=== PATIENT | female | born 1970 | race Caucasian/White ===

== ENCOUNTER → 2022-08-21 | Outpatient (CLI) | payer OTHER, SELFPAY ==
[2022-08-23 09:44] LABS: Thyroid Peroxidase AB 42 IU/mL (0-34)
== END | disposition home or self-care (01) ==
LOC: PAVLAB 14:03
PROVIDERS: PCP Family Medicine; Referring Provider Surgery; Visit Provider Surgery
DX: E07.9 Disorder of thyroid, unspecified (principal)
CPT/HCPCS: 36415; 86376